=== PATIENT | male | born 1975 | race Asian ===

== ENCOUNTER 2024-02-15 06:27 | Day surgery (SDC) | payer OTHER, SELFPAY | END 2024-02-15 13:56 | disposition home or self-care (01) | LOC: GI 06:27 | PROVIDERS: ATTENDING PHYSICIAN Internal Medicine Gastroenterology; FAMILY PHYSICIAN Nurse Practitioner Family | DX: Z12.11 Encounter for screening for malignant neoplasm of colon (principal); D12.5 Benign neoplasm of sigmoid colon; E53.8 Deficiency of other specified B group vitamins; D50.9 Iron deficiency anemia, unspecified | CPT/HCPCS: 45385; 43239; 88305 ==